=== PATIENT | female | born 1965 | race Caucasian/White ===

== ENCOUNTER → 2021-05-27 | Outpatient (CLI) | payer OTHER ==
[~2021-05-27] MED LIST: ATENOLOL 50 MG50 M1 PO; CLONAZEPAM PO; PROZAC 20 MG20 M1 PO; WELLBUTRIN XL150 M1 PO
--- NOTE | 2021-05-27 14:42 | 2DMMODE ---
[place] [address] 2 D/M-MODE ECHOCARDIOGRAM Name: MIKE ZALDIVAR Room: [facility]#: [id number] Admission: 05/27/21 Attend Phys: Wilbert Becerra Discharge: Date of : 61 Date of Service: 05/27/21 1441 Report #: [id number] THIS REPORT FOR: cc: Merle Rose MD, Tisha Darice MD Blick, David R. MD [facility] ~ APPROVED REPORT Study performed: 05/27/2021 14:13:56 EXAM: Comprehensive 2D, Doppler, and color-flow Echocardiogram Patient Location: Out-Patient BSA: 2.04 HR: 126 bpm BP: 125/80 mmHg Other Information Study Quality: Good Indications Atrial Fibrillation 2D Dimensions IVSd: 11.82 (7-11mm) LVOT Diam: 20.21 (18-24mm) LVDd: 42.19 mm PWd: 9.53 (7-11mm) Ascending Ao: 29.65 (22-36mm) LVDs: 29.27 (25-40mm) Aortic Root: 31.81 mm Volumes Left Atrial Volume (Systole) LA ESV Index: 23.80 mL/m2 Aortic Valve AoV Peak Shravan.: 1.12 m/s AO Peak Gr.: 5.00 mmHg LVOT Max P.07 mmHg AO Mean Gr.: 3.15 mmHg LVOT Mean P.48 mmHg LVOT Max V: 0.88 m/s AO V2 VTI: 17.52 cm LVOT Mean V: 0.56 m/s KATELYN (VTI): 2.34 cm2 LVOT V1 VTI: 12.76 cm Mitral Valve MV Decel. Time: 90.06 [place] [address] 2 D/M-MODE ECHOCARDIOGRAM Name: MIKE ZALDIVAR Room: [facility]#: [id number] Admission: 05/27/21 Attend Phys: Wilbert Becerra Discharge: Date of : 61 Date of Service: 05/27/21 1441 Report #: [id number] MV PHT: 26.12 ms MVA (PHT): 8.42 cm2 TDI Medial E' Shravan.: 0.11 m/s Lateral E' Shravan.: 0.13 m/s Pulmonary Valve PV Peak Shravan.: 0.82 m/s PV Peak Gr.: 2.68 mmHg Tricuspid Valve RAP Estimate: 5.00 mmHg TR Peak Gr.: 28.31 mmHg RVSP: 33.31 mmHg PA Pressure: 33.31 mmHg Left Ventricle The left ventricle is normal size. There is normal LV segmental wall motion. There is normal left ventricular wall thickness. Left ventricular systolic function is normal. The left ventricular ejection fraction is within the normal range. LVEF is 55-60%. This study is not technically sufficient to allow evaluation of the LV diastolic function due to atrial fibrillation. Right Ventricle The right ventricle is normal size. The right ventricular systolic function is normal. Atria The left atrium size is normal. The right atrium size is normal. Aortic Valve The aortic valve is normal in structure. No aortic regurgitation is present. There is no aortic valvular stenosis. Mitral Valve The mitral valve is normal in structure. Mild mitral regurgitation. No evidence of mitral valve stenosis. Tricuspid Valve The tricuspid valve is normal in structure. Mild tricuspid regurgitation. Pulmonic Valve Pulmonic valve is not well visualized. There is no [place]mon[place] [address] 2 D/M-MODE ECHOCARDIOGRAM Name: MIKE ZALDIVAR Room: [facility]#: [id number] Admission: 05/27/21 Attend Phys: Wilbert Becerra Discharge: Date of : 61 Date of Service: 05/27/21 1441 Report #: [id number] Great Vessels The aortic root is normal in size. IVC is normal in size and collapses >50% with inspiration. Pericardium There is no pericardial effusion. <Conclusion> LVEF is 55-60%. Mild mitral regurgitation. <ELECTRONICALLY SIGNED> By: Gael Cho MD, [facility] 05/27/211440 40 40 Gael Cho MD, [facility] /INF
--- NOTE | 2021-05-27 14:54 | EKG ---
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: : 1965 Requested By: Wilbert Wisdom Order Number: [id number] Dania MD: Gael Cho Measurements Intervals [place] Rate: 127 P: 88 AR: 136 QRS: -14 QRSD: 137 T: -26 QT: 331 QTc: 482 Interpretive Statements atrial flutter Nonspecific intraventricular conduction delay Inferior infarct Lateral leads are also involved No previous ECG available for comparison Electronically Signed On 05-27-2021 14:54:07 [employer] by Gael Cho [email or web address] <ELECTRONICALLY SIGNED> By: Gael Cho MD, [facility] 05/27/21 1454 1347 1347 Gael Cho MD, [facility] /EPI
== END ==
LOC: M.CRD 12:55
PROVIDERS: ATTEND Chiropractor
DX: I08.1 Rheumatic disorders of both mitral and tricuspid valves (principal); I48.92 Unspecified atrial flutter; I48.91 Unspecified atrial fibrillation